=== PATIENT | male | born 1980 | race American Indian/Alaskan Native ===

== ENCOUNTER 2019-11-04 11:41 | Emergency (ER) | payer SELFPAY ==
[2019-11-04 12:19] VITALS: BP 120/90
--- NOTE | 2019-11-04 14:19 | Emergency Department Report ---
Blank Doc - Documentation Documentation: I attempted to see patient but he was talking on his cell phone Patient then came out of his exam area and stated that he does not want to be seen and he is going to go home I did not get HPI from patient, did not perform physical exam on patient, I informed pt that he would need to sign out against medical advice as he is declining medical care. pt states he would like to sign out AMA. pt signed AMA form. The patient is alert and oriented x3. The patient exhibits decision-making capacity. The patient is free from distracting injury. he is ambulating without difficulty. The risk of leaving without a complete medical examination, and AGAINST MEDICAL ADVICE, were explained to the patient, and they included , disability, paralysis, permanent loss of quality of life. Patient verbalized understanding to these and was able to articulate these risk in their own words and this conversation was witnessed by ZACK Tarango.
== END 2019-11-04 14:06 ==
LOC: ED 11:41
DX: R19.7 Diarrhea, unspecified (principal); Z53.21 Procedure and treatment not carried out due to patient leaving prior to being seen by health care provider

== ENCOUNTER 2020-01-01 13:28 | Emergency (ER) | payer SELFPAY ==
[2020-01-01 13:37] VITALS: BP 115/71
--- NOTE | 2020-01-01 14:28 | Emergency Department Report ---
Chief Complaint: Earache Stated Complaint: EAR ACHE Time Seen by Provider: 01/01/20 14:23 - HPI History of Present Illness: The patient was evaluated in the emergency department for symptoms described in the history of present illness. He/she was evaluated in the context of the global COVID-19 pandemic, which necessitated consideration that the patient might be at risk for infection with the virus that causes COVID-19. Institutional protocols and algorithms that pertain to the evaluation of patients at risk for COVID-19 are in a state of rapid change based on information released by regulatory bodies including the CDC and federal and state organizations. These policies and algorithms were followed during the patient's care in the emergency department. Please note that these policies, procedures and recommendations changed on a rapid basis. 39 y/o male -[place] male presents to the emergency room complaining of right ear pain that started last night, patient states that he use home remedies such as a warm compress Aleve which she reports all has helped. Patient states that he has missed work today and requesting a work excuse. - Exam Vital Signs: Vital Signs 01/01/20 13:36 Temperature 98.2 F Pulse Rate 73 Respiratory 16 Rate Blood Pressure 115/71 O2 Sat by Pulse 99 Oximetry Physical Exam: Alert and oriented x3 no acute distress nontoxic in appearance HEENT: Mouth is moist bilateral tympanic membranes intact no erythematous no infusions no discharge or swelling of the canal. Lungs no accessory muscles used Ambulatory without difficulties. MSE screening note: Focused history and physical exam performed. Due to findings the following was ordered: 39 y/o male -[place] male presents to the emergency room complaining of right ear pain that started last night, patient states that he use home remedies such as a warm compress Aleve which she reports all has helped. Patient states that he has missed work today and requesting a work excuse. Discussed with patient that there is no signs of infection. He reports that the pain is resolved. Recommend to follow-up with [facility] if any further concerns. Work excuse given. ED Disposition for MSE Disposition: MED SCREENING EXAM-LEFT Is pt being admited?: No Does the pt Need Aspirin: No Condition: Stable Additional Instructions: Continue with ibuprofen or Tylenol or Aleve for pain. Follow-up with a primary care provider for symptoms persist or gets worse. Referrals: [facility] [Provider Group] - 3-5 Days Forms: Work/School Release Form(ED)
== END 2020-01-01 14:32 | disposition left against medical advice (07) ==
LOC: ED 13:28
DX: H92.09 Otalgia, unspecified ear (principal); Z53.21 Procedure and treatment not carried out due to patient leaving prior to being seen by health care provider

== ENCOUNTER 2020-02-05 13:27 | Emergency (ER) | payer SELFPAY ==
[2020-02-05 13:55] VITALS: BP 120/79
--- NOTE | 2020-02-05 16:06 | Emergency Department Report ---
Chief Complaint: Earache Stated Complaint: RT EAR ACHE - HPI History of Present Illness: 39-year-old -[place] male presents to the emergency room complaining of right ear pain for 2 days. Patient states that it is gotten better today but still lingering. He denies any discharge from the ear denies any injury to the ear denies any fever chills no nausea no vomiting. - Exam Vital Signs: Vital Signs 02/05/20 13:53 Temperature 98.1 F Pulse Rate 67 Respiratory 14 Rate Blood Pressure 120/79 O2 Sat by Pulse 97 Oximetry Physical Exam: Alert and oriented x3 no acute distress nontoxic in appearance Left ear normal right ear normal nonerythematous. No discharge appreciated Patient is ambulatory without difficulties. MSE screening note: Focused history and physical exam performed. Due to findings the following was ordered: 39-year-old -[place] male presents to the emergency room complaining of right ear pain for 2 days. Patient states that it is gotten better today but still lingering. He denies any discharge from the ear denies any injury to the ear denies any fever chills no nausea no vomiting. ED Disposition for MSE Disposition: Z- MED SCREENING EXAM-LEFT Is pt being admited?: No Does the pt Need Aspirin: No Condition: Stable Additional Instructions: Follow-up with the bear keeper or primary care provider. Referrals: PRIMARY MD EDEN [Primary Care Provider] - 3-5 Days JULIANNA HERRMANN MD [Staff Physician] - 3-5 Days Forms: Work/School Release Form(ED)
== END 2020-02-05 14:00 | disposition left against medical advice (07) ==
LOC: ED 13:27
DX: H92.01 Otalgia, right ear (principal); Z53.21 Procedure and treatment not carried out due to patient leaving prior to being seen by health care provider

== ENCOUNTER 2020-09-07 20:06 | Emergency (ER) | payer SELFPAY ==
[2020-09-07 22:25] VITALS: BP 104/79
--- NOTE | 2020-09-08 02:37 | Emergency Department Report ---
ED General Adult HPI - General Chief complaint: Earache Stated complaint: RIGHT EARACHE Time Seen by Provider: 09/08/20 02:14 Source: patient Mode of arrival: Ambulatory Limitations: No Limitations - History of Present Illness Initial comments: Patient 40-year-old -[place] male who presents for right ear pain intermittent for the past 4 days. Pain is described as 6/10 aching. Patient denies fevers or chills there is no throat pain there is no sinus pain or drainage. There is no ear drainage however there is pain with movement. Patient denies loss of hearing. There has been no trauma. - Related Data Previous Rx's Medication Instructions Recorded Last Taken Type Ciprofloxacin HCl/Dexameth 4 drops OT BID 7 Days #7.5 ml 09/08/20 Unknown Rx [Ciproflox-Dexameth Otic Susp] Ibuprofen [Motrin 800 MG tab] 800 mg PO Q8HR PRN #30 tablet 09/08/20 Unknown Rx Allergies Allergy/AdvReac Type Severity Reaction Status Date / Time No Known Allergies Allergy Unverified 11/04/19 12:15 ED Review of Systems ROS: Stated complaint: RIGHT EARACHE Other details as noted in HPI Constitutional: denies: chills, fever Eyes: denies: eye pain, eye discharge, vision change ENT: ear pain. denies: throat pain, dental pain, congestion Respiratory: denies: cough, shortness of breath, wheezing Cardiovascular: denies: chest pain, palpitations Endocrine: no symptoms reported Gastrointestinal: denies: abdominal pain, nausea, diarrhea Genitourinary: denies: urgency, dysuria Musculoskeletal: denies: back pain, joint swelling, arthralgia Skin: denies: rash, lesions Neurological: denies: headache, weakness, paresthesias Psychiatric: denies: anxiety, depression Hematological/Lymphatic: denies: easy bleeding, easy bruising ED Past Medical Hx - Past Medical History Previous Medical History?: No - Surgical History Past Surgical History?: No - Social History Smoking Status: Never Smoker Substance Use Type: None - Medications Home Medications: Home Medications Medication Instructions Recorded Confirmed Last Taken Type Ciprofloxacin HCl/Dexameth 4 drops OT BID 7 Days #7.5 ml 09/08/20 Unknown Rx [Ciproflox-Dexameth Otic Susp] Ibuprofen [Motrin 800 MG tab] 800 mg PO Q8HR PRN #30 tablet 09/08/20 Unknown Rx ED Physical Exam - General Limitations: No Limitations General appearance: alert, in no apparent distress - Head Head exam: Present: normocephalic, normal inspection - Eye Eye exam: Present: normal appearance, PERRL, EOMI Pupils: Present: normal accommodation - ENT ENT exam: Present: normal orophraynx, mucous membranes moist, TM's normal bilaterally - Expanded ENT Exam Expanded Ear exam: Present: normal external inspection TM/Canal exam: Erythema: Right TM (Eliminating urine magnesium), Canal Tenderness: Right TM Mouth exam: Present: normal external inspection. Absent: trismus Throat exam: Positive: normal inspection. Negative: tonsillar erythema, tonsillomegaly, tonsillar exudate - Neck Neck exam: Present: normal inspection, full ROM. Absent: tenderness, lymphadenopathy - Respiratory Respiratory exam: Present: normal lung sounds bilaterally, stridor. Absent: wheezes - Cardiovascular Cardiovascular Exam: Present: regular rate, normal rhythm, normal heart sounds. Absent: systolic murmur, diastolic murmur, rubs, gallop - GI/Abdominal GI/Abdominal exam: Present: soft, normal bowel sounds. Absent: distended, tenderness - Rectal Rectal exam: Present: deferred - Extremities Exam Extremities exam: Present: normal inspection, full ROM. Absent: tenderness - Back Exam Back exam: Present: normal inspection, full ROM. Absent: tenderness - Neurological Exam Neurological exam: Present: alert, oriented X3, CN II-XII intact, normal gait - Psychiatric Psychiatric exam: Present: normal affect, normal mood - Skin Skin exam: Present: warm ED Course Vital Signs 09/07/20 22:24 Temperature 97.9 F Pulse Rate 71 Respiratory 17 Rate Blood Pressure 104/79 O2 Sat by Pulse 97 Oximetry ED Medical Decision Making - Medical Decision Making This is otitis externa plan Ciprodex, NSAIDs, follow-up primary care doctor in 2 to 3 days. Patient verbalized agreement and understanding of discharge plan. Patient DC'd home in stable condition at this time. Critical care attestation.: If time is entered above; I have spent that time in minutes in the direct care of this critically ill patient, excluding procedure time. ED Disposition Clinical Impression: Otitis externa Qualifiers: Otitis externa type: unspecified type Chronicity: acute Laterality: right Qualified Code(s): H60.501 - Unspecified acute noninfective otitis externa, right ear Disposition: DC-01 TO HOME OR SELFCARE Is pt being admited?: No Does the pt Need Aspirin: No Condition: Stable Instructions: Ear Drops, Adult, Otitis Externa, [id number] Additional Instructions: Take medications as prescribed, follow-up primary care doctor in 2 to 3 days. Return to emergency should symptoms worsen. Prescriptions: Ciprofloxacin HCl/Dexameth [Ciproflox-Dexameth Otic Susp] 4 drops OT BID 7 Days #7.5 ml Ibuprofen [Motrin 800 MG tab] 800 mg PO Q8HR PRN #30 tablet PRN Reason: pain Referrals: JULIANNA HERRMANN MD [Staff Physician] - 3-5 Days Forms: Work/School Release Form(ED) Time of Disposition: 02:40
== END 2020-09-08 02:59 | disposition home or self-care (01) ==
LOC: ED 20:06
DX: H60.91 Unspecified otitis externa, right ear (principal); Z79.899 Other long term (current) drug therapy

== ENCOUNTER 2020-09-20 18:35 | Emergency (ER) | payer SELFPAY ==
[2020-09-20 19:26] VITALS: BP 125/71
--- NOTE | 2020-09-20 23:22 | Emergency Department Report ---
Chief Complaint: Abdominal Pain Stated Complaint: ABD PAIN Time Seen by Provider: 09/20/20 23:18 - HPI History of Present Illness: 40-year-old male patient presents to the emergency department with complaints of diarrhea starting today. Patient states he has experienced 6 episodes of loose stools since this morning. No known sick contacts. No current steroid antibiotic use. No recent travel. Patient is not on any medications. His fast food intake has increased recently. Nobody else who has been eating the same food has developed similar symptoms. No recent hospitalizations. No history of abdominal surgeries. Denies fever, chills, abdominal pain, nausea, vomiting, rectal bleeding, melena, urinary symptoms. Denies all other complaints at this time. - ROS Review of Systems: GENERAL: Negative for fever, chills, weight change, anorexia, fatigue. ENT: Negative for ear pain, difficulty hearing, sore throat, nasal congestion, epistaxis. CARDIOVASCULAR: Negative for chest pain, palpitations, lower extremity swelling. PULMONARY: Negative for cough, dyspnea, wheezing, orthopnea, cyanosis. GASTROINTESTINAL: Positive for diarrhea. MUSCULOSKELETAL: Negative for joint pain, joint swelling, myalgias, back pain, neck pain. NEUROLOGICAL: Negative for headache, seizure, syncope, paresthesias, weakness. INTEGUMENTARY: Negative for erythema, rash, diaphoresis, laceration, ecchymosis. HEMATOLOGICAL: Negative for hemoptysis, hematemesis, hematochezia, hematuria. PSYCHIATRIC: Negative for hallucinations, suicidal ideation, homicidal ideation, anxiety, depression. - Exam Vital Signs: Vital Signs 09/20/20 19:24 Temperature 99.6 F Pulse Rate 92 H Respiratory 16 Rate Blood Pressure 125/71 [Right] O2 Sat by Pulse 98 Oximetry Physical Exam: General: Awake and alert. No acute distress. Head: Atraumatic, normocephalic. Eyes: EOMI. Pupils are equal and round. Normal sclera and conjunctiva. ENT: Oral mucosa is moist. Normal pharyngeal exam. Neck: Supple. No lymphadenopathy. Pulmonary: No respiratory distress. Clear to auscultation bilaterally. Cardiac: Regular rate and rhythm. Pulses are palpable and equal bilaterally. No lower extremity cyanosis or edema. Skin: Warm and dry. No rashes. Abdomen: Soft, non-tender, non-protuberant. No guarding, rigidity, or rebound. Bowel sounds are normal. No organomegaly or masses noted. McBurney's point is nontender. Tavares sign is negative. Back: Normal alignment. No CVA tenderness. Extremities: Symmetrical. Full range of motion intact. Neurological: Alert and oriented, appropriately interactive, no focal deficits. Psych: Cooperative. Appropriate mood and affect. Speech is evenly metered. Thoughts are logically construed. ED Medical Decision Making - Medical Decision Making Patient presents to the emergency department with complaints of 6 episodes of diarrhea today, no associated pain or vomiting. He is afebrile, hemodynamically stable, well-hydrated. Abdominal exam is benign without signs of peritonitis. Patient is immunocompetent without risk factors for C. difficile. No clinical indication for further diagnostic work-up on an emergent basis at this time. Patient will be discharged home with instructions for appropriate symptomatic treatment and referred to primary care provider for close outpatient follow-up. Patient expressed understanding and is agreeable to plan of care. Disease transmission precautions discussed. Strict return precautions provided. ED Disposition for MSE Clinical Impression: Diarrhea Qualifiers: Diarrhea type: unspecified type Qualified Code(s): R19.7 - Diarrhea, unsp ecified Disposition: DC- TO HOME OR SELFCARE Is pt being admited?: No Does the pt Need Aspirin: No Condition: Stable Instructions: Probiotics, Diarrhea, Adult, [id number] Additional Instructions: Rest. Drink plenty of fluids. Wash hands frequently to prevent disease transmission. Do not share food or drinks with others. Gradually advance diet slowly as tolerated. Increase your dietary intake of probiotic rich foods. Follow-up with primary care provider this week. Call tomorrow to schedule an appointment. See referral information below. Return to the emergency department immediately for new or worsening symptoms. Specifically, return to the emergency department immediately for fever, abdominal pain, vomiting, black/bloody stools, dehydration, rash, mental status changes, or any other concerns. Referrals: MIREILLE HAYNES MD [Staff Physician] - 3-5 Days [facility] [Outside] - 3-5 Days [facility] [Outside] - 3-5 Days [facility] [Outside] - 3-5 Days [facility] [Provider Group] - 3-5 Days Forms: Work/School Release Form(ED) Time of Disposition: 23:22
== END 2020-09-20 23:28 | disposition home or self-care (01) ==
LOC: ED 18:35
DX: R19.7 Diarrhea, unspecified (principal)
CPT/HCPCS: 99281

== ENCOUNTER 2021-03-27 17:57 | Emergency (ER) | payer BC ==
[2021-03-27 18:02] VITALS: BP 108/72
[2021-03-27 18:46] LABS: Basophils # (Auto) 0.1 K/mm3 (0.0-0.1); Basophils % (Auto) 0.7 % (0.0-1.8); Eosinophils # (Auto) 0.1 K/mm3 (0.0-0.4); Eosinophils % (Auto) 1.1 % (0.0-4.3); Hematocrit 38.7 % (35.5-45.6); Hemoglobin 11.9 gm/dl (11.8-15.2); Lymphocytes # (Auto) 3.1 K/mm3 (1.2-5.4); Lymphocytes % (Auto) 25.9 % (13.4-35.0); Mean Corpuscular HGB Conc 31 % (32-34); Mean Corpuscular Volume 70 fl (84-94); Monocytes # (Auto) 0.7 K/mm3 (0.0-0.8); Monocytes % (Auto) 5.4 % (0.0-7.3); Platelet Count 299 K/mm3 (140-440); Red Blood Count 5.49 M/mm3 (3.65-5.03); Red Cell Distribution Width 15.6 % (13.2-15.2)
[2021-03-27 19:08] LABS: Alanine Aminotransferase 12 units/L (7-56); Albumin 3.9 g/dL (3.9-5); BUN/Creatinine Ratio 7; Blood Urea Nitrogen 8 mg/dL (9-20); Calcium 8.9 mg/dL (8.4-10.2); Hemolysis Index 13
[2021-03-27 19:48] LABS: Bilirubin,Urine NEG (Negative); Blood,Urine NEG (Negative); Color,Urine Yellow (Yellow); Mucus,Urine 3+ /HPF; Protein,Urine <15 mg/dL mg/dL (Negative); Renal Epithelial Cells,Urine <1 /LPF
--- NOTE | 2021-03-27 20:18 | Emergency Department Report ---
ED General Adult HPI - General Chief complaint: Abdominal Pain Stated complaint: STOMACHACHE Time Seen by Provider: 03/27/21 20:12 Source: patient Mode of arrival: Ambulatory Limitations: No Limitations - History of Present Illness Initial comments: 40-year-old -Citizen Of [place] male patient presents with complaints of nausea and vomiting today. Patient reports he had a few episodes of vomiting and had abdominal pain that would occur only right before he vomited and then resolved immediately after. He denies any hematemesis/coffee-ground emesis, me armin/hematochezia, fever/chills/sweats, chest pain, shortness of breath, cough, or recent known sick contacts. No history of abdominal surgeries per patient. He denies any past medical history. Patient states his symptoms began after he ate some takeout food - Related Data Previous Rx's Medication Instructions Recorded Last Taken Type Ciprofloxacin HCl/Dexameth 4 drops OT BID 7 Days #7.5 ml 09/08/20 Unknown Rx [Ciproflox-Dexameth Otic Susp] Ibuprofen [Motrin 800 MG tab] 800 mg PO Q8HR PRN #30 tablet 09/08/20 Unknown Rx Doxycycline Monohydrate 100 mg PO BID 7 Days #14 cap 03/27/21 Unknown Rx Ondansetron [Zofran Odt] 4 mg PO Q8HR PRN #10 tab.rapdis 03/27/21 Unknown Rx metroNIDAZOLE [Flagyl] 2,000 mg PO ONCE 1 Days #4 tab 03/27/21 Unknown Rx Allergies Allergy/AdvReac Type Severity Reaction Status Date / Time No Known Allergies Allergy Verified 03/27/21 18:02 ED Review of Systems ROS: Stated complaint: STOMACHACHE Other details as noted in HPI Constitutional: denies: chills, fever, malaise Respiratory: denies: cough, shortness of breath Cardiovascular: denies: chest pain Gastrointestinal: as per HPI. denies: diarrhea Musculoskeletal: denies: back pain, joint swelling, arthralgia Skin: denies: rash, change in color Neurological: denies: headache ED Past Medical Hx - Social History Smoking Status: Never Smoker Substance Use Type: None - Medications Home Medications: Home Medications Medication Instructions Recorded Confirmed Last Taken Type Ciprofloxacin HCl/Dexameth 4 drops OT BID 7 Days #7.5 ml 09/08/20 Unknown Rx [Ciproflox-Dexameth Otic Susp] Ibuprofen [Motrin 800 MG tab] 800 mg PO Q8HR PRN #30 tablet 09/08/20 Unknown Rx Doxycycline Monohydrate 100 mg PO BID 7 Days #14 cap 03/27/21 Unknown Rx Ondansetron [Zofran Odt] 4 mg PO Q8HR PRN #10 tab.rapdis 03/27/21 Unknown Rx metroNIDAZOLE [Flagyl] 2,000 mg PO ONCE 1 Days #4 tab 03/27/21 Unknown Rx ED Physical Exam - General Limitations: No Limitations General appearance: alert, in no apparent distress - Head Head exam: Present: atraumatic, normocephalic - Eye Eye exam: Present: normal appearance. Absent: scleral icterus - Respiratory Respiratory exam: Present: normal lung sounds bilaterally. Absent: respiratory distress - Cardiovascular Cardiovascular Exam: Present: regular rate, normal rhythm - GI/Abdominal GI/Abdominal exam: Present: soft, normal bowel sounds. Absent: distended, tenderness, guarding, rebound, rigid - Back Exam Back exam: Absent: CVA tenderness (R), CVA tenderness (L) - Neurological Exam Neurological exam: Present: alert, oriented X3, normal gait - Psychiatric Psychiatric exam: Present: normal affect, normal mood - Skin Skin exam: Present: warm, dry, intact, normal color. Absent: rash ED Course Vital Signs 03/27/21 18:01 Temperature 98.9 F Pulse Rate 75 Respiratory 20 Rate Blood Pressure 108/72 [Left] O2 Sat by Pulse 98 Oximetry ED Medical Decision Making - Lab Data Result diagrams: 03/27/21 18:31 03/27/21 18:31 Lab Results 03/27/21 03/27/21 03/27/21 Range/Units 18:31 18:31 18:31 WBC 12.0 H (4.5-11.0) K/mm3 RBC 5.49 H (3.65-5.03) M/mm3 Hgb 11.9 (11.8-15.2) gm/dl Hct 38.7 (35.5-45.6) % MCV 70 L (84-94) fl MCH 22 L (28-32) pg MCHC 31 L (32-34) % RDW 15.6 H (13.2-15.2) % Plt Count 299 (140-440) K/mm3 Lymph % (Auto) 25.9 (13.4-35.0) % [place] % (Auto) 5.4 (0.0-7.3) % Eos % (Auto) 1.1 (0.0-4.3) % Baso % (Auto) 0.7 (0.0-1.8) % Lymph # (Auto) 3.1 (1.2-5.4) K/mm3 [place] # (Auto) 0.7 (0.0-0.8) K/mm3 Eos # (Auto) 0.1 (0.0-0.4) K/mm3 Baso # (Auto) 0.1 (0.0-0.1) K/mm3 Seg Neutrophils % 66.9 (40.0-70.0) % Seg Neutrophils # 8.1 H (1.8-7.7) K/mm3 Sodium 142 (137-145) mmol/L Potassium 4.5 (3.6-5.0) mmol/L Chloride 106.5 (98-107) mmol/L Carbon Dioxide 26 (22-30) mmol/L Anion Gap 14 mmol/L BUN 8 L (9-20) mg/dL Creatinine 1.1 (0.8-1.3) mg/dL Estimated GFR > 60 ml/min BUN/Creatinine Ratio 7 % Glucose 114 H (75-100) mg/dL Calcium 8.9 (8.4-10.2) mg/dL Total Bilirubin 0.30 (0.1-1.2) mg/dL AST 17 (5-40) units/L ALT 12 (7-56) units/L Alkaline Phosphatase 68 (35-129) units/L Total Protein 6.0 L (6.3-8.2) g/dL Albumin 3.9 (3.9-5) g/dL Albumin/Globulin Ratio 1.9 % Lipase 21 (13-60) units/L Urine Color (Yellow) Urine Turbidity (Clear) Urine pH (5.0-7.0) Ur Specific [place] (1.003-1.030) Urine Protein (Negative) mg/dL Urine Glucose (UA) (Negative) mg/dL Urine Ketones (Negative) mg/dL Urine Blood (Negative) Urine Nitrite (Negative) Urine Bilirubin (Negative) Urine Urobilinogen (<2.0) mg/dL Ur Leukocyte Esterase (Negative) Urine WBC (Auto) (0.0-6.0) /HPF Urine RBC (Auto) (0.0-6.0) /HPF U Epithel Cells (Auto) (0-13.0) /HPF Ur Renal Epithelial Cell /LPF Urine Mucus /HPF 03/27/21 Range/Units 19:06 WBC (4.5-11.0) K/mm3 RBC (3.65-5.03) M/mm3 Hgb (11.8-15.2) gm/dl Hct (35.5-45.6) % MCV (84-94) fl MCH (28-32) pg MCHC (32-34) % RDW (13.2-15.2) % Plt Count (140-440) K/mm3 Lymph % (Auto) (13.4-35.0) % [place] % (Auto) (0.0-7.3) % Eos % (Auto) (0.0-4.3) % Baso % (Auto) (0.0-1.8) % Lymph # (Auto) (1.2-5.4) K/mm3 [place] # (Auto) (0.0-0.8) K/mm3 Eos # (Auto) (0.0-0.4) K/mm3 Baso # (Auto) (0.0-0.1) K/mm3 Seg Neutrophils % (40.0-70.0) % Seg Neutrophils # (1.8-7.7) K/mm3 Sodium (137-145) mmol/L Potassium (3.6-5.0) mmol/L Chloride (98-107) mmol/L Carbon Dioxide (22-30) mmol/L Anion Gap mmol/L BUN (9-20) mg/dL Creatinine (0.8-1.3) mg/dL Estimated GFR ml/min BUN/Creatinine Ratio % Glucose (75-100) mg/dL Calcium (8.4-10.2) mg/dL Total Bilirubin (0.1-1.2) mg/dL AST (5-40) units/L ALT (7-56) units/L Alkaline Phosphatase (35-129) units/L Total Protein (6.3-8.2) g/dL Albumin (3.9-5) g/dL Albumin/Globulin Ratio % Lipase (13-60) units/L Urine Color Yellow (Yellow) Urine Turbidity Slightly-cloudy (Clear) Urine pH 5.0 (5.0-7.0) Ur Specific [place] 1.027 (1.003-1.030) Urine Protein <15 mg/dl (Negative) mg/dL Urine Glucose (UA) Neg (Negative) mg/dL Urine Ketones Tr (Negative) mg/dL Urine Blood Neg (Negative) Urine Nitrite Neg (Negative) Urine Bilirubin Neg (Negative) Urine Urobilinogen 2.0 (<2.0) mg/dL Ur Leukocyte Esterase Mod (Negative) Urine WBC (Auto) 24.0 H (0.0-6.0) /HPF Urine RBC (Auto) 24.0 (0.0-6.0) /HPF U Epithel Cells (Auto) 15.0 H (0-13.0) /HPF Ur Renal Epithelial Cell <1 /LPF Urine Mucus 3+ /HPF - Medical Decision Making 40-year-old -Citizen Of [place] male patient presents with complaints of nausea and vomiting today. Patient reports he had a few episodes of vomiting and had abdominal pain that would occur only right before he vomited and then resolved immediately after. He denies any hematemesis/coffee-ground emesis, melena/hematochezia, fever/chills/sweats, chest pain, shortness of breath, cough, or recent known sick contacts. No history of abdominal surgeries per patient. He denies any past medical history. Patient states his symptoms began after he ate some takeout food No acute abnormalities noted on CBC, CMP, or lipase. No tenderness of the abdomen or CVA tenderness noted on exam. UA shows elevated WBCs and RBCs. Patient admits to intermittent dysuria post urination for the past month. No penile/testicular discharge, lesions, swelling, or pain. Will cover patient for gonorrhea chlamydia. Advised patient to follow-up with his primary care doctor or urgent care/the health department for further STI testing. Patient to refrain from any sexual intercourse for 2 to 3 weeks and have his partner get tested. He is otherwise well-appearing, his vitals are within normal limits, he is stable for discharge home. Strict return precautions were discussed in detail with patient who verbalized understanding Critical care attestation.: If time is entered above; I have spent that time in minutes in the direct care of this critically ill patient, excluding procedure time. ED Disposition Clinical Impression: Nausea & vomiting, Pyuria, Hematuria Disposition: HOME / SELF CARE / HOMELESS Is pt being admited?: No Condition: Stable Instructions: Food Poisoning, [id number], Dysuria Prescriptions: Doxycycline Monohydrate 100 mg PO BID 7 Days #14 cap metroNIDAZOLE [Flagyl] 2,000 mg PO ONCE 1 Days #4 tab Ondansetron [Zofran Odt] 4 mg PO Q8HR PRN #10 tab.rapdis PRN Reason: Nausea Referrals: [facility] [Provider Group] - 3-5 Days [facility] [Outside] - 3-5 Days Forms: Work/School Release Form(ED)
[2021-03-27] MEDS ORDERED: LIDOCAINE-MPF (1%) 10 MG/1 ML VIAL 5 ML INFILTRATI ONE (20:19)
== END 2021-03-27 20:50 | disposition home or self-care (01) ==
LOC: ED 17:57
DX: R11.2 Nausea with vomiting, unspecified (principal); R82.81 Pyuria; R31.9 Hematuria, unspecified; Z79.899 Other long term (current) drug therapy
CPT/HCPCS: 36415; 80053; 81001; 83690; 85025; 87086; 99283